=== PATIENT | male | born 1985 | race Caucasian/White ===

== ENCOUNTER 2024-10-20 17:56 | Emergency (ER) | payer OTHER, SELFPAY ==
[2024-10-20 18:27] VITALS: BP 129/73; PULSE 58; RESP 16; TEMP 36.3; O2SAT 98; BMI 35.5
--- NOTE | 2024-10-20 18:31 | ED.GENADULT ---
HPI - General Adult General Chief complaint: Wound/Laceration Stated complaint: Head Laceration/WC Time Seen by Provider: 10/20/24 18:29 Source: patient, RN notes reviewed and old records reviewed Mode of arrival: ambulatory Limitations: no limitations History of Present Illness ED Provider: Deborah HPI narrative: 38-year-old male presents for evaluation of a head injury. Patient was at work when he scraped his head on a conveyor belt. There was no loss of consciousness. There is no bleeding. He was sent here for evaluation and management. The patient denies any pain to his head Related Data Allergies Allergy/AdvReac Type Severity Reaction Status Date / Time Penicillins Allergy Rash Verified 10/20/24 18:29 Review of Systems Constitutional: Constitutional: Denies body ache(s), Denies chills, Denies fever(s) and Denies headache(s) ENT: Denies vertigo and Denies headache(s) Integumentary/Breasts: Skin/Breast: Reports wounds Neurologic: Denies vertigo and Denies headache(s) PMFSH Social History Social History Advance Directives: No Advance Directives Information Provided: No Physical Exam ED Vital Signs: Vital Signs - 24 hr 10/20/24 18:27 Temperature 97.3 F Pulse Rate 58 Respiratory Rate 16 Blood Pressure 129/73 Pulse Oximetry 98 Oxygen Delivery Method Room Air BMI result Body Mass Index 35.5 Const General: healthy appearing, comfortable, no acute distress, alert and awake Nutritional Appearance: well nourished Orientation/consciousness: patient oriented x3 HENMT Other: There was a 4 cm linear abrasion, very superficial to the top of the scalp slightly right of center Eyes Eyelids: Yes eyelids normal Conjunctivae: conjunctivae normal Sclerae: sclerae normal Corneas: corneas normal Pupils: Equal, round and reactive pupils present EOM: EOMs intact bilaterally Neck Neck: Yes full ROM Resp Effort & Inspection: normal respiratory effort, able to speak in complete sentences and not labored Skin General skin exam: elasticity normal Neuro General: patient oriented x3 Cranial nerves: Yes Equal, round and reactive pupils present and Yes Bilaterally intact EOM present Cognition (Neuro): normal cognition Extrem Other: Moving all extremities well without any obvious deformities Medical Decision Making Medical Decision Making [facility] Narrative: 38-year-old male presents for evaluation of a minor head wound. There is a small abrasion, no deep lacerations. There is no bleeding. There was no loss of consciousness, the patient has no pain whatsoever and is neurologically intact. Plan for discharge with symptomatic treatment only. The patient will be referred to occupational health Differential Diagnosis Differential Diagnoses: The differential diagnosis associated with the presentation includes Abrasion Minor head was Concussion Laceration Discharge Plan Discharge Clinical Impression: Abrasion Patient Disposition: Home, Self-Care Instructions: Abrasion (ED) Additional Instructions: Keep the area clean and dry. You may follow-up with Dr. Maravilla for any new or worsening symptoms You may apply topical antibiotic daily Referrals: Angel Maravilla MD [Physician] - (head abrasion) Print Language: [place]
[2024-10-20 19:00] VITALS: BP 129/73; PULSE 58; RESP 16; TEMP 36.3; O2SAT 98
== END 2024-10-20 19:02 | disposition home or self-care (01) ==
PROVIDERS: Emergency Provider Emergency Medicine; PCP Internal Medicine
DX: S00.01XA Abrasion of scalp, initial encounter (principal); W22.8XXA Striking against or struck by other objects, initial encounter; Y93.89 Activity, other specified; Y92.59 Other trade areas as the place of occurrence of the external cause; Y99.0 Civilian activity done for income or pay
CPT/HCPCS: 99282